=== PATIENT | male | born 1980 | race Caucasian/White ===

== ENCOUNTER 2025-05-21 15:11 | Emergency (ER) | payer OTHER ==
[~2025-05-21] VITALS: Ht 185.4 cm; Wt 113.9 kg
[2025-05-21 16:17] VITALS: PULSE 73; RESP 16; TEMP 98.3; O2SAT 100
[2025-05-21] MEDS ORDERED: BACTRIM DS TAB1 EACH PO (16:41)
== END 2025-05-21 16:50 | disposition home or self-care (01) ==
LOC: ER 15:58
DX: L03.311 Cellulitis of abdominal wall (principal)
CPT/HCPCS: 99282